=== PATIENT | male | born 1970 | race Caucasian/White ===

== ENCOUNTER 2017-05-04 08:11 | Emergency (ER) | payer MEDICARE ==
[2014-06-16 07:17] VITALS: BMI 37.4
[~2017-05-04 08:11] MED LIST: GABAPENTIN100 MG PO; HYDROCHLOROTHIA25 MG PO; HYDROCODONE-APA1 TAB PO; KLONOPIN0.5 MG PO; SEROQUEL400 MG PO
[2017-06-20] MEDS ORDERED: XANAX1 MG PO (17:15)
== END 2017-05-04 09:01 | disposition home or self-care (01) ==
LOC: D.ER 08:11
DX: S49.91XA Unspecified injury of right shoulder and upper arm, initial encounter (principal); X58.XXXA Exposure to other specified factors, initial encounter; Y93.89 Activity, other specified; Y92.029 Unspecified place in mobile home as the place of occurrence of the external cause; I10 Essential (primary) hypertension; F17.200 Nicotine dependence, unspecified, uncomplicated

== ENCOUNTER 2017-06-22 05:13 | Day surgery (SDC) | payer MEDICARE ==
[2017-06-21 09:06] LABS: HEMOGLOBIN 16.8 g/dL (13.5-17.5); MCH 34.1 pg (26.0-34.0); MCHC 35.7 g/dL (31.0-37.0); MCV 95.5 fL (80.0-100.0); MEAN PLATELET VOLUME 10.5 fL (7.4-10.4); RBC 4.92 10x6/uL (4.20-6.10); RDW 12.1 % (11.5-14.5); WBC 7.7 10x3/uL (4.8-10.8)
[2017-06-21 09:26] LABS: CALC OSMOLALITY 274 mosm/kg (275-300); CALCIUM 9.3 mg/dL (8.5-10.1); CARBON DIOXIDE 27.1 mmol/L (21.0-32.0); CHLORIDE - SERUM 104 mmol/L (98-107); CREATININE - SERUM 0.8 mg/dL (0.6-1.3); GLUCOSE 96 mg/dL (74-106); POTASSIUM - SERUM 4.4 mmol/L (3.5-5.1); SODIUM 138 mmol/L (136-145); UREA NITROGEN 11 mg/dL (7-18); eGFR NON AFRICAN AMERICAN > 90 mL/min (90-120)
[~2017-06-22] VITALS: Ht 182.9 cm; Wt 122.5 kg
[~2017-06-22 05:13] MED LIST changes: +XANAX1 MG PO
[2017-06-22 08:39] VITALS: BP 129/91; Ht 182.9 cm; Wt 122.5 kg
[2017-06-22] MEDS ORDERED: HYDROCODONE-APA1 TAB PO (11:18)
--- NOTE | 2017-06-22 14:06 | OP ---
PATIENT NAME: MELODY ADDISON MEDICAL RECORD: [id number] :74 LOCATION:[facility] ADMISSION DATE: SURGEON: ARIA ADAME MD DATE OF OPERATION: 06/22/2017 PREOPERATIVE DIAGNOSES: Rotator cuff tear of the left shoulder with impingement syndrome and acromioclavicular arthritis. POSTOPERATIVE DIAGNOSES: Rotator cuff tear of the left shoulder with impingement syndrome and acromioclavicular arthritis. PROCEDURE: 1. Arthroscopic rotator cuff repair. 2. Arthroscopic subacromial decompression, acromioplasty and bursectomy. 3. Arthroscopic distal clavicle excision done through separate incision -- 1 cm. SURGEON: Aria Adame MD ANESTHESIA: General. INTRAOPERATIVE COMPLICATIONS: None. SUMMARY OF PATHOLOGIC FINDINGS: As predicted with the preoperative MRI, the patient had full thickness rotator cuff tearing emanating from the articular aspect, worse actually on the articular aspect, type 3 acromion, and acromioclavicular arthritis. OPERATIVE SUMMARY IN DETAIL: After obtaining the appropriate preoperative orthopedic surgery consent as well as anesthetic consultation, evaluation and clearance, the patient was brought to the operating room and placed on operating table in supine position. After adequate general laryngeal mask airway was administered, the patient was placed in a right lateral decubitus position. All pressure points were well padded to include down leg peroneal pad as well as axillary roll. The patient was held firmly to the operating table using vacuum pack suction system. Left upper extremity and shoulder were then prepped and draped in routine sterile fashion. The arm was held in the Arthrex traction boom at 30 degrees of forward flexion, 30 degrees of abduction, 10 pounds of traction laterally. Arthroscopy was established in the glenohumeral joint from a posterior portal. Anterior portal was established in the anterior safe interval. Diagnostic arthroscopy did reveal the patient to have a rotator cuff tear. Transrotator cuff tear portal was created to debride the undersurface of the rotator cuff tearing and decorticate the most medial aspect of the supraspinatus tendinous footprint. Attention then turned to the subacromial space, substantial amounts of bursa was immediately noted. This was taken down. The undersurface of the acromion was denuded using the [place] tissue ablator and a 5-0 barrel bur was used to perform acromioplasty at the level of acromioclavicular joint and through a separate arthroscopic portal anteriorly under direct visualization, the distal clavicle was excised for 1 cm. Lastly, the rotator cuff tear was treated with a #2 FiberTape in an inverted mattress fashion and anchored laterally with a 5.5 SwiveLock from Arthrex. Having completed this, arthroscopy portals were closed in routine interrupted fashion using 4-0 Prolene. Sterile dressings were applied. The patient was awakened, taken to the recovery room in stable condition. All final needle and sponge counts were correct. OPERATIVE REPORT [id number] CYNMAHENDRAJACOB TRANSINT:[id number] Voice Confirmation ID: [id number] DOCUMENT ID: [id number] DEEP AUGUSTINE, ARIA SHAW at 1406 CC: [id number] DICTATION DATE: 06/22/17 1121 RADIO FREQUENCY TECHNICIAN: 06/22/17 113[id number] [place] [address]
--- NOTE | 2017-06-22 14:19 | NUR ---
1419--pt request pain med before leaving the hospital for trip home, rates pain 4/10. norco 10/325mg given po for pain. [place] rn
--- NOTE | 2017-06-22 15:09 | NUR ---
1240--PT COMPLAINS OF NAUSEA, 4MG ZOFRAN GIVEN SIVP. JEANNA PETERSEN 1400--PT VOIDS, IV DC'D. JEANNA RN 1420--DISCHARGE INSTRUCTIONS GIVEN, PT VERBALIZES UNDERSTANDING. PT OFF UNIT VIA WC. JEANNA PETERSEN
== END 2017-06-22 14:20 | disposition home or self-care (01) ==
LOC: D.OPS 05:13 → D.PAN 10:30 → D.OPS 10:55 → D.PAN 11:00 → D.OPS 14:20
PROVIDERS: Anesthesiology
DX: M75.102 Unspecified rotator cuff tear or rupture of left shoulder, not specified as traumatic (principal); M75.42 Impingement syndrome of left shoulder; M13.812 Other specified arthritis, left shoulder; Z01.812 Encounter for preprocedural laboratory examination

== ENCOUNTER → 2018-01-01 15:36 | Outpatient (CLI) | payer MEDICARE, MEDICAID ==
[2017-06-22 08:39] VITALS: BMI 36.7
== END | disposition home or self-care (01) ==
LOC: D.MRI 15:36
DX: M25.511 Pain in right shoulder (principal)

== ENCOUNTER 2018-04-23 07:55 | Day surgery (SDC) | payer MEDICARE ==
[~2018-04-23] VITALS: Ht 180.3 cm; Wt 117.9 kg
--- NOTE | ~2018-04-23 | OP ---
PATIENT NAME: MELODY ADDISON MEDICAL RECORD: [id number] :74 LOCATION:[facility] ADMISSION DATE: SURGEON: ARIA ADAME MD DATE OF OPERATION: 04/23/2018 PREOPERATIVE DIAGNOSIS: Right shoulder impingement syndrome with rotator cuff tear. POSTOPERATIVE DIAGNOSIS: Right shoulder impingement syndrome with rotator cuff tear. PROCEDURE: 1. Arthroscopic rotator cuff repair of the right shoulder. 2. Arthroscopic distal clavicle excision done through separate incision -- 1 cm. 3. Arthroscopic subacromial decompression, acromioplasty, and bursectomy. SURGEON: Aria Adame MD ANESTHESIA: General. INTRAOPERATIVE COMPLICATIONS: None. SUMMARY OF PATHOLOGIC FINDINGS: Consistent with the preoperative diagnosis, MRI, and physical examination. The patient had a full thickness rotator cuff tear, acromioclavicular arthritis as well as impingement syndrome. OPERATIVE SUMMARY IN DETAIL: After obtaining the appropriate preoperative orthopedic surgery consent as well as anesthetic consultation, evaluation, and clearance, the patient was brought to the operating room and placed on the operating table in supine position. After general laryngeal mask airway was administered, the patient was placed in left lateral decubitus position. All pressure points were well padded to include down leg peroneal pad as well as axillary roll. The patient was held firmly to the operating table using the vacuum pack suction system. The patient's right upper extremity and shoulder were then prepped and draped in routine sterile fashion. The arm was held in the Arthrex traction boom at 30 degrees of forward flexion, 30 degrees of abduction, 10 pounds of traction laterally. Arthroscopy was established in the glenohumeral joint from the posterior portal, anterior portal was established in the anterior safe interval. Diagnostic arthroscopy revealed the patient to have relatively normal articular surfaces with no substantial labral tearing, full thickness rotator cuff tearing was seen. A transarthroscopic rotator cuff portal was created for debridement of the articular aspects of the torn fibers and decortication of the supraspinatus tendinous footprint. Attention was then turned to the subacromial space. While in the subacromial space, [place] tissue ablation system was utilized to denude the undersurfaces of the acromion of soft tissue elements and a 5-0 barrel bur was used to perform acromioplasty at the level of acromioclavicular joint. Through a separate anterior arthroscopic portal, distal clavicle excision was carried out for 1 cm of the distal clavicle excision and removal of the osteophytes on the medial aspect of the acromion. Having completed this, attention was turned to the subacromial bursa, which was all taken down superiorly, anteriorly, laterally, and posteriorly. Lastly, attention was turned to the rotator cuff. A 5.0 resector was utilized to decorticate the supraspinatus tendinous footprint. A single inverted #2 FiberTape was then utilized to reapproximate the rotator cuff back to its OPERATIVE REPORT [id number] MELODY ADDISON insertion point and a single 5.5 SwiveLock was utilized for lateral attachment. Having completed this, arthroscopy portals were closed in routine interrupted fashion using 4-0 Prolene. Sterile dressings were applied. The patient was awakened and taken to the recovery room in stable condition. All final needle and sponge counts were correct. TRANSINT:[id number] Voice Confirmation ID: [id number] DOCUMENT ID: [id number] 05/07/2018 Edited for converting supervisor error, jean-claude. DEEP AUGUSTINE, ARIA SHAW at 1512 CC: [id number] DICTATION DATE: 04/27/18 1319 TRAFFIC MAINTENANCE OFFICER: 04/27/18 1327 [facility] 04/23/18 [id number] [place] [address]
[~2018-04-23 07:55] MED LIST changes: +KLONOPIN1 MG PO
[2018-04-23 09:13] VITALS: BP 117/82; Ht 180.3 cm; Wt 117.9 kg
[2018-04-23] MEDS ORDERED: DEMEROL100 MG PO (12:52)
== END 2018-04-23 15:00 | disposition home or self-care (01) ==
LOC: D.PAN 07:55 → D.OPS 13:45 → D.PAN 13:45
DX: M75.41 Impingement syndrome of right shoulder (principal); M75.121 Complete rotator cuff tear or rupture of right shoulder, not specified as traumatic; Z01.812 Encounter for preprocedural laboratory examination

== ENCOUNTER → 2019-03-01 07:20 | Outpatient (CLI) | payer MEDICARE ==
[2018-04-23 09:13] VITALS: BMI 36.3
[~2019-03-01 07:20] MED LIST changes: +DEMEROL100 MG PO; +HYDROCODON-ACE1 EA10 PO; +HYDROCODON-ACE1 EAC7 PO
== END | disposition home or self-care (01) ==
LOC: D.MRI 07:20
PROVIDERS: ATTEND Clinical Nurse Specialist Family Health
DX: M25.512 Pain in left shoulder (principal); M54.12 Radiculopathy, cervical region

== ENCOUNTER 2019-03-21 07:20 | Day surgery (SDC) | payer MEDICARE ==
[2019-03-20 09:17] LABS: HEMATOCRIT 47.1 % (42.0-54.0); HEMOGLOBIN 16.9 g/dL (13.5-17.5); MCH 34.1 pg (26.0-34.0); MCHC 35.9 g/dL (31.0-37.0); MCV 95.2 fL (80.0-100.0); MEAN PLATELET VOLUME 10.6 fL (7.4-10.4); RBC 4.95 10x6/uL (4.20-6.10); RDW 12.3 % (11.5-14.5)
[~2019-03-21] VITALS: Ht 180.3 cm; Wt 127.3 kg
[~2019-03-21 07:20] MED LIST changes: -HYDROCODON-ACE1 EA10 PO
[2019-03-21 07:36] VITALS: BP 139/95; Ht 180.3 cm; Wt 127.3 kg
[2019-03-21] MEDS ORDERED: HYDROCODON-ACE1 EA10 PO (10:13)
--- NOTE | 2019-03-21 10:43 | NUR ---
VANCOMYCIN 1.5GRAMS IN 250CC OF NORMAL SALINE INFUSING ON ADMIT TO RR
--- NOTE | 2019-03-21 11:45 | NUR ---
DISCHARGE INSTRUCTIONS REVIEWED WITH PATIENT, PATIENT AMBULATING AROUND ROOM WITHOUT UNSTEADINESS OR DIZZINESS, DRESSING SELF IN PERSONAL CLOTHING
--- NOTE | 2019-03-21 11:55 | NUR ---
PATIENT IS READY FOR DISCHARGE HOME BUT STATES GIRLFRIEND IS STILL ON HER WAY. PATIENT WANTS TO BE WHEELED TO ENTRANCE AND LEFT OUTSIDE ON [place] TO "GET SOME FRESH AIR." THIS NURSE EXPLAINS TO PATIENT THAT HOSPITAL POLICY IS THAT PATIENT MUST BE WHEELED DIRECTLY FROM PATIENT ROOM TO THE VEHICLE OF THE PERSON THAT IS DRIVING HIM HOME. PATIENT SITTING IN ROOM, SIPPING WATER.
--- NOTE | 2019-03-21 12:15 | NUR ---
PATIENT STATES THAT HIS GIRLFRIEND IS GETTING A MASSAGE AND SHE WILL BE HERE WHEN IT IS OVER.
--- NOTE | 2019-03-21 13:01 | NUR ---
GIRLFRIEND ARRIVES, PATIENT DISCHARGED HOME VIA WHEELCHAIR TO PRIVATE VEHICLE WITH GIRLFRIEND
--- NOTE | 2019-03-21 13:26 | OP ---
PATIENT NAME: MELODY ADDISON MEDICAL RECORD: [id number] :74 LOCATION:[facility] ADMISSION DATE: SURGEON: ARIA ADAME MD DATE OF OPERATION: 03/21/2019 PREOPERATIVE DIAGNOSIS: Impingement syndrome of the left shoulder. POSTOPERATIVE DIAGNOSIS: Impingement syndrome of the left shoulder. PROCEDURES: 1. Arthroscopic distal clavicle excision done through separate incision - 1 cm. 2. Arthroscopic subacromial decompression, acromioplasty and bursectomy. SURGEON: Aria Adame MD ANESTHESIA: General. INTRAOPERATIVE COMPLICATIONS: None. SUMMARY OF PATHOLOGIC FINDINGS: The patient had severe impingement with excoriation of the coracoacromial ligament as well as grade IV chondromalacia of the acromioclavicular joint. Intraarticularly, the patient had no evidence of rotator cuff tearing. On the nonarticular side, he had some rotator cuff attritional changes; however, no tearing was noted. Biceps tendon had a mild amount of tendinitis; however, no substantial tendinopathy was seen. OPERATIVE SUMMARY IN DETAIL: After obtaining the appropriate preoperative orthopedic surgery consent as well as anesthetic consultation, evaluation, and clearance, the patient was brought to the operating room and placed on the operating table in supine position. After adequate general laryngeal mask airway was administered, the patient was placed in a right lateral decubitus position. All pressure points were well padded to include down leg peroneal pad as well as axillary roll. At this point, intraoperative time-out was taken and agreed upon by all. The patient's left upper extremity and shoulder were then prepped and draped in routine sterile fashion. The arm was held in the Arthrex traction boom at 30 degrees of forward flexion, 30 degrees of abduction, 10 pounds of traction laterally. Arthroscopy was established in the glenohumeral joint from the posterior portal. Anterior portal was established in the anterior safe interval. Diagnostic arthroscopy did show the patient to have the above-mentioned findings. At this point, attention was directly turned to the subacromial space. While in the subacromial space, accessory lateral portal was created through which the [place] tissue ablation system was utilized to denude the undersurface of the acromion of all soft tissue elements and release the coracoacromial ligament. Having completed that, 5-0 barrel bur was used to perform acromioplasty at the level of acromioclavicular joint and through a separate arthroscopic anterior portal under direct arthroscopic incision. Under direct arthroscopic visualization, distal clavicle was excised for 1 cm. Lastly, the residual of all of the bursa that was substantial in the subacromial space was taken out anteriorly, laterally, posteriorly as well as across the top of the rotator cuff tendon. Rotator cuff did have some mild attritional changes, but no tearing was seen. At this point, arthroscopy portals were closed in routine interrupted fashion using 4-0 Prolene. Sterile dressings were applied. The patient was awakened and taken to recovery room in stable condition. All final needle and sponge counts were correct. OPERATIVE REPORT [id number] MELODY ADDISON TRANSINT:[id number] Voice Confirmation ID: [id number] DOCUMENT ID: [id number] DEEP AUGUSTINE, ARIA SHAW at 1326 CC: [id number] DICTATION DATE: 03/21/19 1016 ROD BUSTER: 03/21/19 1122 [facility] 03/21/19 [facility] [address] [place] [address]
== END 2019-03-21 13:01 | disposition home or self-care (01) ==
LOC: D.OPS 07:20 → D.PAN 10:15 → D.OPS 10:15 → D.PAN 12:50 → D.OPS 13:01 → D.PAN 14:15
PROVIDERS: Anesthesiology; ATTEND Orthopaedic Surgery
DX: M75.42 Impingement syndrome of left shoulder (principal)

== ENCOUNTER → 2019-06-28 09:53 | Outpatient (CLI) | payer MEDICARE ==
[2019-03-21 07:36] VITALS: BMI 39.1
[~2019-06-28 09:53] MED LIST changes: +HYDROCODON-ACE1 EA10 PO
== END | disposition home or self-care (01) ==
LOC: D.MRI 09:53
PROVIDERS: ATTEND Clinical Nurse Specialist Family Health
DX: M25.561 Pain in right knee (principal)

== ENCOUNTER 2019-07-18 09:12 | Day surgery (SDC) | payer MEDICARE ==
[~2019-07-18] VITALS: Ht 180.3 cm; Wt 127.0 kg
[2019-07-18 09:22] VITALS: BP 153/80; Ht 180.3 cm; Wt 127.0 kg
[2019-07-18] MEDS ORDERED: PERCOCET 10-321 EAC1 PO (11:22)
--- NOTE | 2019-07-18 15:46 | NUR ---
1302 IV DC'D. CATHETER TIP INTACT. PRESSURE HELD UNTIL BLEEDING CEASED. IV SITE WRAPPED WITH SELF ADHESIVE ELASTIC BANDAGE. 1310 PT ASSISTED WITH GETTING DRESSED. PT IS READY FOR DISCHARGE BUT WAITING ON HIS RIDE HOME.
--- NOTE | 2019-07-22 08:35 | OP ---
PATIENT NAME: MELODY ADDISON MEDICAL RECORD: [id number] :74 LOCATION:[facility] ADMISSION DATE: SURGEON: ARIA ADAME MD DATE OF OPERATION: 07/18/2019 PREOPERATIVE DIAGNOSIS: Anterior cruciate ligament of the right knee with lateral meniscus tear of the right knee. PREOPERATIVE DIAGNOSES: Anterior cruciate ligament of the right knee only. SURGEON: Aria Adame MD EVS MANAGER: BELLE Sanches INTRAOPERATIVE COMPLICATIONS: None. SUMMARY OF PATHOLOGIC FINDINGS: Fortunately for the patient I found absolutely no chondromalacia in the entire knee. After substantial probing of the lateral meniscus, there was no evidence of tearing of the lateral meniscus and the medial meniscus obviating the need for only ACL reconstruction which was torn in half. OPERATIVE SUMMARY IN DETAIL: After obtaining the appropriate preoperative orthopedic surgery consent as well as anesthetic consultation, evaluation and clearance, the patient was brought to the operating room and placed on the operating table in a supine position. After adequate general laryngeal mask airway was administered, tourniquet was placed on the proximal aspect of the right lower extremity. Right lower extremity was then prepped and draped in routine sterile fashion. At this point, appropriate timeout was taken and agreed upon by all. Leg was exsanguinated and inflated to 350 mmHg. Routine inferolateral portal was established followed by superomedial portal and inferomedial portal. Diagnostic arthroscopy did reveal the above findings. A 5-0 resector was then utilized to debride the ACL stump both from the femur and the tibia as well as a complete notchplasty as this patient did have a very tight notch for a nail. Having completed this, the tibial tunnel was placed using the tibial tunnel guide of size 11. At this point, over top guide was utilized to place the spade tip drill bit through the appropriate origin and out the lateral aspect of the ACL and out the lateral skin. At this point, the 11-mm low profile reamer was utilized to create a 35-mm tunnel as the 10-mm graft was 25 mm on both ends. FiberWire was then used to pass the graft and seated in and keeping in line with the TightRope technique. The TightRope was then deployed to the lateral aspect of the femur with very good seating of the proximal bone of the graft. The proximal bone of the graft was seated likewise into the tibial tunnel. At this point, a small incision was extended and a post from Arthrex was put into place, tied about the post and then seated down all while the knee was held in slight flexion. Please note that the graft was seated in before it was finally tightened in. Having completed this, wounds were copiously irrigated and closed by BELLE Sanches. A compass hinge brace was placed, locked to protect the patient from his regional anesthesia with strict instructions to take this off of the CPM. Sterile dressings were applied to the incision sites. Tourniquet was deflated. The patient was awakened and taken to the recovery room in stable condition. All final needle and sponge counts were correct. TRANSINT:[id number] Voice Confirmation ID: [id number] DOCUMENT ID: [id number] OPERATIVE REPORT [id number] MELODY ADDISON MD, ARIA SHAW at 0835 CC: [id number] DICTATION DATE: 07/19/19 1118 AIRPLANE AND ENGINE INSPECTOR: 07/19/19 1742 [facility] 07/18/19 [id number] [place] [address]
== END 2019-07-18 14:22 | disposition home or self-care (01) ==
LOC: D.OPS 09:12 → D.PAN 10:00 → D.OPS 10:00
PROVIDERS: ATTEND Orthopaedic Surgery
DX: S83.511A Sprain of anterior cruciate ligament of right knee, initial encounter (principal); S83.281A Other tear of lateral meniscus, current injury, right knee, initial encounter; S82.101A Unspecified fracture of upper end of right tibia, initial encounter for closed fracture; X58.XXXA Exposure to other specified factors, initial encounter; M25.561 Pain in right knee; M25.511 Pain in right shoulder; M25.512 Pain in left shoulder